=== PATIENT | female | born 1950 | race Caucasian/White ===

== ENCOUNTER → 2018-02-23 | Outpatient (CLI) | payer BC, MEDICARE | LOC: M.RAD 09:39 | DX: Z12.31 Encounter for screening mammogram for malignant neoplasm of breast (principal) ==

== ENCOUNTER → 2018-03-02 | Outpatient (CLI) | payer BC, MEDICARE | LOC: M.RAD 03-01 13:13 | DX: N64.89 Other specified disorders of breast (principal); R92.8 Other abnormal and inconclusive findings on diagnostic imaging of breast ==

== ENCOUNTER → 2018-03-08 | Outpatient (CLI) | payer BC, MEDICARE ==
--- NOTE | 2018-03-11 15:07 | PATH ---
[address] [address] PATHOLOGY RPT PROCEDURE Name: SYDNI BLANCO [id number] Admission: 03/08/18 Date of : 52 Discharge: Report #: [id number] Path Case #: [id number] [facility] Accession Number: [id number] . 01 Material submitted: . RIGHT BREAST TISSUE . 01 Clinical history: . Right stereotactic breast BX for right breast asymmetry . 02 Diagnosis: Right breast asymmetry, right stereotactic breast biopsy: - Benign skin and benign breast tissue with mild chronic inflammation and luminal and stromal calcifications, negative for atypia. See comment. . (CAN:mml; 03/10/18) [facility]/03/10/2018 . 02 Comment: Reviewed with Dr. Garett Montana who agrees with the diagnosis. . (CAN:mml; 03/10/18) . 02 Electronically signed: . Ravinder Rodriguez MD, Pathologist NPI- [id number] . 01 Gross description: . Received in formalin labeled "Sydni Blanco, right breast tissue," are multiple needle cores of yellow-christiansen fibrofatty tissue measuring 2.9 x 2.5 x 0.6 cm in aggregate dimensions. The tissue is submitted in its entirety in cassettes A1 through A3. The cold ischemic time is 5 minutes. The total formalin fixation time is 7 hours and 20 minutes. (TSD; 03/08/2018) TOB/TOB . 02 Pathologist provided ICD-10: N61.0, R92.1 . 02 CPT . 426337 Specimen Comment: A courtesy copy of this report has been sent to Specimen Comment: [phone], , . Specimen Comment: Report sent to ,DR VICTOR / DR PRICE Specimen Comment: A duplicate report has been generated due to demographic updates. Performed at: [address] [place] [address] PATHOLOGY RPT PROCEDURE Name: SYDNI BLANCO [id number] Admission: 03/08/18 Date of : 52 Discharge: Report #: [id number] Path Case #: [id number] [address] [facility] [address], [place], [place] [id number] MD Justino Phillips MD Phone: [phone] Performed at: [address] [address] [address], [place], [place] [id number] MD Ravinder Rodriguez MD Phone: [phone]
== END ==
LOC: M.RAD 10:37
DX: N61.0 Mastitis without abscess (principal); R92.1 Mammographic calcification found on diagnostic imaging of breast; Z90.49 Acquired absence of other specified parts of digestive tract; Z98.890 Other specified postprocedural states; Z79.899 Other long term (current) drug therapy; Z88.0 Allergy status to penicillin; Z88.2 Allergy status to sulfonamides